=== PATIENT | female | born 1940 | race Caucasian/White ===

== ENCOUNTER → 2023-05-05 14:02 | Outpatient (REF) | payer OTHER, SELFPAY | LOC: HWRAD 14:02 | PROVIDERS: ATTENDING PHYSICIAN Internal Medicine; FAMILY PHYSICIAN Internal Medicine | DX: M81.0 Age-related osteoporosis without current pathological fracture (principal) | CPT/HCPCS: 77080 ==

== ENCOUNTER → 2023-05-17 11:25 | Outpatient (REF) | payer OTHER, SELFPAY ==
[2023-05-17 15:43] LABS: % Basophils 0.8 % (0-2); % Eosinophils 3.2 % (0-6); % Immature Granulocytes 0.3 % (0-0.5); % Lymphocytes 31.3 % (20.5-51.1); % Monocytes 7.9 % (1.7-9.3); % Neutrophils 56.5 % (42.2-75.2); Absolute Basophils 0.1 10^3/uL (0-0.2); Absolute Eosinophils 0.3 10^3/uL (0-0.7); Absolute Lymphocytes 2.8 10^3/uL (1.2-3.4); Absolute Monocytes 0.7 10^3/uL (0.1-0.6); Absolute Neutrophils 5.1 10^3/uL (1.4-6.5); Hematocrit 34.7 % (37.0-47.0); Mean Corp Hgb Conc. 34.6 g/dL (33.0-37.0); Mean Corpuscular Hgb 31.5 pg (27.0-31.0); Mean Corpuscular Volume 91.1 fL (81.0-99.0); Mean Platelet Volume 10.9 fL (7.4-10.4); Nucleated Red Blood Cells % 0 %; Platelet Count 310 10^3/uL (130-400); Red Blood Cell Count 3.81 10^6/uL (4.20-5.40); Red Cell Dist. Width 14.2 % (11.5-14.5)
[2023-05-17 15:54] LABS: ALT (SGPT) 25 U/L (0-35); AST (SGOT) 35 U/L (14-36); Albumin 4.9 g/dl (3.5-5.0); Alkaline Phosphatase 52 U/L (38-126); Blood Urea Nitrogen 63 mg/dl (7-17); Calcium 10.4 mg/dl (8.4-10.2); Carbon Dioxide 25 mmol/L (22-30); Chloride 101 mmol/L (98-107); Glucose 101 mg/dl (70-99); Potassium 3.9 mmol/L (3.5-5.1); Sodium 134 mmol/L (135-145); Total Bilirubin 0.6 mg/dl (0.2-1.3); Total Cholesterol 279 mg/dl (50-199); Total Protein 7.9 g/dl (6.3-8.2); Triglyceride 73 mg/dl (10-149); Very Low Density Lipoprotein 14 mg/dl (0-30); eGFR 34.79
[2023-05-17 16:04] LABS: HDL Cholesterol 138 mg/dl; LDL Cholesterol, Calculated 127 mg/dl
[2023-05-17 16:24] LABS: TSH Reflex To Free T4 1.56 uIU/ml (0.47-4.68)
[2023-05-17 16:26] LABS: Microalbumin, Random Urine 7.6 mg/dl (0.6-1.7)
== END ==
LOC: HWLAB 11:25
PROVIDERS: ATTENDING PHYSICIAN Internal Medicine; FAMILY PHYSICIAN Nurse Practitioner Family
DX: M81.0 Age-related osteoporosis without current pathological fracture (principal); R79.89 Other specified abnormal findings of blood chemistry; I10 Essential (primary) hypertension; E78.5 Hyperlipidemia, unspecified
CPT/HCPCS: 36415; 80053; 80061; 82043; 82306; 82570; 84443; 85025

== ENCOUNTER → 2023-05-20 15:27 | Outpatient (REF) | payer OTHER, SELFPAY ==
[2023-05-20 15:48] LABS: Ionized Calcium 1.24 mMOL/L (1.15-1.33)
[2023-05-20 16:08] LABS: Calcium 10.8 mg/dl (8.4-10.2)
[2023-05-21 11:24] LABS: Intact PTH 41.9 pg/ml (13.6-85.8)
== END ==
LOC: REG 15:27
PROVIDERS: ATTENDING PHYSICIAN Internal Medicine; FAMILY PHYSICIAN Internal Medicine
DX: M81.0 Age-related osteoporosis without current pathological fracture (principal); N18.32 Chronic kidney disease, stage 3b; E83.52 Hypercalcemia
CPT/HCPCS: 36415; 82330; 83970

== ENCOUNTER → 2023-08-03 12:09 | Outpatient (REF) | payer OTHER, SELFPAY ==
[2023-08-03 14:41] LABS: ALT (SGPT) 22 U/L (0-35); AST (SGOT) 32 U/L (14-36); Albumin 4.7 g/dl (3.5-5.0); Alkaline Phosphatase 48 U/L (38-126); Blood Urea Nitrogen 37 mg/dl (7-17); Calcium 10.9 mg/dl (8.4-10.2); Carbon Dioxide 27 mmol/L (22-30); Chloride 100 mmol/L (98-107); Glucose 75 mg/dl (70-99); Potassium 4.3 mmol/L (3.5-5.1); Sodium 138 mmol/L (135-145); Total Bilirubin 0.5 mg/dl (0.2-1.3); Total Protein 7.6 g/dl (6.3-8.2); eGFR 56.25
== END ==
LOC: REG 12:09
PROVIDERS: ATTENDING PHYSICIAN Internal Medicine; FAMILY PHYSICIAN Internal Medicine
DX: N18.9 Chronic kidney disease, unspecified (principal)
CPT/HCPCS: 36415; 80053

== ENCOUNTER 2023-09-26 15:41 | Inpatient (IN) | payer OTHER, SELFPAY ==
[2023-09-26] VITALS (10 sets, daily range): BP systolic 107–157; BP diastolic 59–79; BMI 16.3
[2023-09-26 09:38] LABS: Glucose - Point of Care 112 mg/dl (70-99)
[2023-09-26 10:02] LABS: ALT (SGPT) 22 U/L (0-35); AST (SGOT) 32 U/L (14-36); Albumin 4.6 g/dl (3.5-5.0); Alkaline Phosphatase 50 U/L (38-126); Blood Urea Nitrogen 29 mg/dl (7-17); Calcium 10.2 mg/dl (8.4-10.2); Carbon Dioxide 31 mmol/L (22-30); Chloride 95 mmol/L (98-107); Estimated Creatinine Clearance 31 ml/min; Glucose 104 mg/dl (70-99); Potassium 3.7 mmol/L (3.5-5.1); Sodium 133 mmol/L (135-145); Total Bilirubin 0.7 mg/dl (0.2-1.3); Total Protein 7.2 g/dl (6.3-8.2); eGFR 56.25
--- NOTE | 2023-09-26 10:45 | ED.GENMED ---
History of Present Illness
General
Chief Complaint: Change in Mental Status
Source: patient and spouse
Exam Limitations: altered mental status
Time Seen by Provider: 09/26/23 09:36
Nursing documentation reviewed up to this point in time: agreed with
History of Present Illness
History of Present Illness:
83-year-old female history of hypertension presents with mental status change woke up early went to the gym came back found her confused in the bed, she has loss of memory, she appeared confused, did not recognize things to remember dates,
she did recognize her , here she is unsure where she is, unsure of the date, no trauma, no nausea or vomiting states she has a mild headache, no dysuria or frequency, drinks alcohol socially not excess, no history of strokes or heart disease
does have some chronic back pain uses a walker or cane
Past History
Past History
ED Past Medical History: HTN and Other (Chronic pain in the back)
ED Past Surgical History: Orthopedic (wrist)
Social History
Tobacco: Smoker
Alcohol: Occasional
Drug: None
Personal:
Living: with family
Employment: Retired
Family History
Family History: Other (Noncontributory)
Review of Systems
Review of Systems
All Other Systems: Not applicable
Constitutional: Denies fever or fatigue
EENT: Reports no symptoms
Respiratory: Reports no symptoms
Cardiac: Reports no symptoms
ABD/GI: Reports no symptoms
: Reports no symptoms
Neurological: Reports other (Memory loss)
Phy Exam
Physical Exam
Physical Exam:
Physical Exam
General: no apparent distress, not acutely ill
Neck: No tongue bite
Heart: Regular
Lungs: no acute respiratory distress. clear bilaterally
Abdomen: Nontender
Neuro: Moves all extremities, recognizes her , no facial palsy unsure of the date unsure of the place
Skin: no rash
Psychiatric: Appropriately anxious although cooperative
Extremities: no edema.
Course
Orders/Labs/Results
Orders:
Orders
09/26/23 09:34
Electrocardiogram (*1) Urgent
Reason for Study: Other
Other Reason for Exam: Possible Sepsis
EKG- Treatment ONCE
IV Insert/Care/Rem.- Treatment PRN
Pulse Ox/cont/shift [RESP] Urgent
Quantity: 1
Special Instructions: CONTINUOUS
09/26/23 09:37
Complete Blood Count/With Diff Urgent
Comprehensive Metabolic Panel Urgent
09/26/23 10:26
CT Head W/o Iv Contrast Urgent
Comment:
Reason For Exam: amnesia
09/26/23 10:27
Urinalysis Reflex To Culture Urgent
09/26/23 11:00
NEUROLOGY CONSULT Routine
Consulting Provider: Carlos Alberto Rosario
Was physician already notified: Yes
09/26/23 12:14
Aspirin 325 mg PO NOW STA
Clopidogrel Bisulfate [Plavix] 300 mg PO NOW STA
Abnormal Lab Results
09/26/23
09:37
RBC 4.03 L 10^6/uL
(4.20-5.40)
Hct 36.0 L %
(37.0-47.0)
MCH 31.5 H pg
(27.0-31.0)
RDW 14.6 H %
(11.5-14.5)
Absolute Neuts (auto) 8.9 H 10^3/uL
(1.4-6.5)
Neutrophils % 81.6 H %
(42.2-75.2)
Lymphocytes % 12.6 L %
(20.5-51.1)
Sodium 133 L mmol/L
(135-145)
Chloride 95 L mmol/L
(98-107)
Carbon Dioxide 31 H mmol/L
(22-30)
BUN 29 H mg/dl
(7-17)
Glucose 104 H mg/dl
(70-99)
POC Glucose 112 H mg/dl
(70-99)
09/26/23 09:37
09/26/23 09:37
Vital Signs
Initial and Last Documented VS:
Initial Vital Signs
Temp Pulse Resp BP Pulse Ox
99.6 F 85 13 146/79 92
09/26/23 09:35 09/26/23 09:35 09/26/23 09:35 09/26/23 09:35 09/26/23 09:35
Last Documented Vital Signs
Temp Pulse Resp BP Pulse Ox
99.6 F 83 17 144/73 97
09/26/23 09:35 09/26/23 11:30 09/26/23 11:30 09/26/23 11:00 09/26/23 11:30
MDM/Problems Addressed
Differential Diagnosis Includes:
TGA, seizure mass electrolyte abnormality toxic metabolic
MDM/Problems Addressed:
Confusion
Chronic conditions affecting care: HTN
Acute Exacerbation and/or Progression of Chronic Illness: HTN
*Radiology
Radiology exam reviewed: radiology read reviewed
*Pulse Oximetry
Patient hypoxic: no
*EKG
Interpreted by ED Provider?: Yes
Interpretation: abnormal
Comparison EKG: no comparison EKG present
Heart Rate: 78
Rate: normal
Rhythm: sinus
Ischemia: non-specific ST changes
*Metals Sales Representative Interpretation
Rate: normal
Interpretation: normal
Heart Rate: 78
Rhythm: sinus
*Critical Care Note
Total Time (30-74mins, 75-104mins- exclusive of procedures): Not Applicable
Update Note
Update Note:
Update CT noted, patient and spouse updated have requested nonurgent neurology consultation
Reviewed with neurology concerned that this could actually be CVA, patient has some neglect, will start on aspirin and Plavix
ED Attending Note
-
Portions of this chart may have been created with voice recognition software.� Occasional wrong word or��sound alike� substitutions may have occurred due to the inherent limitations of voice recognition software.
Discharge Plan
Departure
Patient Disposition: Admit
Date of Disposition: 09/26/23
Time of Disposition: 12:16
Admit to: Telemetry
Presentation/result/management discussed w/ accepting MD/DO: Hospitalist
Patient with high blood pressure during this ER visit?: Yes
Condition: Fair
Discharge Problem:
Stroke
Prescriptions:
No Action
lisinopril 20 MG tablet
20 mg PO DAILY
metoprolol tartrate 25 MG tablet
25 mg PO DAILY
hydrochlorothiazide 12.5 MG tablet
12.5 mg PO DAILY
Referrals:
UNKNOWN,NO INTERVIEW [Family Provider] -
Interventions
Interventions:
*Risk Screen - Suicide Last Done: 09/26/23 09:32
*General Assessment Last Done: 09/26/23 09:32
*Neglect/Abuse Screening Last Done: 09/26/23 09:32
*ED COVID-19 Vaccine History Last Done: 09/26/23 09:32
ED- Neurological Assessment Last Done: 09/26/23 09:32
Discharge Date and Time
Print Language: ALGERIAN
--- NOTE | 2023-09-26 11:09 | CON.NEURO4 ---
Addendum entered and electronically signed by Carlos Alberto Rosario MD 09/26/23 13:18:
I saw and evaluated the patient I reviewed the note by Lucinda Arevalo agree with the findings the following comments:
83-year-old woman with past medical history of hypertension tobacco use and significant alcohol use presented to hospital with acute onset of confusion and memory difficulty, speech abnormality and disorientation. Patient was normal yesterday and
did not have any abnormalities of mental status or functioning. Noted by her this morning around 7 AM that she did not want to get out of bed and she was not speaking normally, was not able to answer basic questions like saying her name,.
No recent fevers or complaint of neck pain head trauma patient complained of a mild headache.
Patient has no previous history of stroke or heart attack she does take 3 medications for blood pressure and averages around 5 to 6 cigarettes a day, around 8 to 10 ounces of vodka daily for years with no history of alcohol withdrawal or seizure.
Neurologic examination
Mental status is significantly abnormal patient can identify her but cannot say his middle name she can identify her daughter but not give her name and the patient cannot say her own name when asked to, she can repeat simple phrases and
identify simple objects consistently, not oriented to situation and location and cannot name any states of the [place], obeys simple commands consistently but cannot obey more complex commands such as touching the left ear with the right hand.
Cranial nerve examination shows a visual neglect on the right visual hemifield otherwise normal cranial nerves
Motor examination no pronator drift strength is 5/5 for shoulder abduction arm flexion hip flexion bilateral
CT head noncontrast unremarkable
Assessment: High suspicion for a left sided parietal or MCA distribution ischemic stroke given sudden onset confusion and speech difficulty and disorientation along with right visual hemineglect. Less likely alcohol related like Wernicke's
encephalopathy but would remain in DDx with significant chronic alcohol use. Not consistent with TGA by history or examination.
Recommendations
-IV thiamine high-dose 500 mg every 8 hours for the next few days
-Monitor for alcohol withdrawal
-Loaded with aspirin and clopidogrel and continue DAPT therapy tentatively for 3-week
-Permissive hypertension goal less than 220/120 till tomorrow morning at 7 AM
-Neurologic checks and NIH stroke scale
-Cardiac telemetry and check transthoracic echocardiogram
-Check MRI brain MRA head and neck
-Speech PT OT
We will follow
Original Note:
Documented by User: Lucinda Toro NP 09/26/23 12:45
Consultation - Neurology 4
-
CONSULTING PHYSICIAN: Yoli Rosario MD
REFERRING PHYSICIAN: ER/Dr. Elliott
DICTATED BY: GERRY Flores
DATE/TIME OF REQUEST: 09/26/23
DATE/TIME OF CONSULTATION: 09/26/23
Reason for Consultation: Confusion
History of Present Illness:
This is an 83-year-old right-handed female who has presented to the hospital with report of abrupt onset confusion. Patient is currently a limited historian and most of this information is obtained from her spouse and daughter at bedside. Patient's
reports that they went to bed last night (09/25/23) around 2200 and the patient was in her usual state. He returned home from the gym this morning at 0700 and reports that she reported not feeling well, and saying she didn't want to get out
of bed. She was unable to provide answers to most of his questions and seemed like she had thoughts but was unable to finish her sentences. She was unable to state her own name. He was able to help her get dressed but couldn't convince her to walk
to the car to go to the hospital, so he called EMS. CT head was obtained on arrival and is negative for any acute abnormalities. She is not a candidate for TNK/IAT due to outside of time window and NIHSS <6. Patient endorses a mild right parietal
headache. She denies any dizziness, vision changes, speech/swallow difficulty, numbness, weakness, chest pain, palpitations, and shortness of breath. She had been a daily smoker since she was a teenager. Her family also notes that she drink 8-10oz
of vodka daily for years and has a tremor at baseline. She has no history of TIA, stroke, or events similar to this in the past and she was not taking any blood-thinning medications. At baseline she has ambulated with a cane or walker for several
years due to lumbar compression fractures. She manages most of the finances and still drives, no overt cognitive issues.
Past Medical History: HTN, HLD, CKD, osteoporosis, recurrent UTI, COPD, glaucoma, impaired fasting blood glucose, L1 and S3 compression fracture, right wrist fracture, pelvic fracture
Surgical History: Right wrist repair, vertebroplasty.
Family History: Mother- CVA in her 60's.
Social History: Current daily smoker 5-6 cigarettes daily. Chronic daily alcohol usage 8-10oz vodka daily. Denies illicit drug use/
Allergies: No known allergies.
Home Medications: See below.
Review of Symptoms:
Patient denies any fever, chest pain, shortness of breath, GI or symptoms.
�Per the HPI.�All systems are reviewed negative except above.
Physical Exam:
The patient is afebrile, abdomen is nondistended, breathing is unlabored, skin is warm and dry, no edema.
NIH Stroke Scale:
I performed the NIH stroke scale on the patient on 09/26/23 at 1200. The patient scored 4 points on the NIH stroke scale assessment, which were assigned as follows: See below.
Neurologic Examination:
The patient is awake, alert and oriented to first name only. She is able to follow some two-step commands, great difficulty following commands involving the right side of her body. She can answer only a few questions appropriately. There is mild
aphasia, no dysarthria. On cranial nerve assessment, pupils are 3 mm bilateral, round and reactive to light and accommodation. Visual ingram are appear reduced on the right side, mostly the RLQ. Extraocular movements are intact. Facial sensations
are intact and bilaterally symmetrical, there is no facial asymmetry. Hearing is intact bilaterally to normal conversation volume. Tongue palate and uvula are midline. Sternocleidomastoid strengths are full bilaterally. Motor strengths are 5/5
bilateral upper and lower extremities on medical research [place] scale. There is no drift or involuntary movement noted. Deep tendon reflexes are 1+ bilateral upper and lower extremities, absent b/l patellar, and Babinski is absent bilaterally.
Sensations of touch, temperature and vibration are intact and bilaterally symmetrical. There was no extinction noted on double simultaneous stimulation. Coordination is intact by finger to nose bilaterally.
Lab Results: See below.
Neuro Imaging:
1. CT Head 09/26/23: No acute intracranial abnormalities appreciated. Mild cerebral atrophy. Nonspecific white matter hypoattenuation, most often seen in the setting of small vessel ischemic change.
Differentials for the patient's presentation include:
1. Likely an acute left hemisphere parietal/occipital ischemic infarct producing confusion, right vision deficit.
2. Chronic daily alcohol usage.
Patient has the following risk factors for their symptoms: HTN, HLD, smoking, age
IV Tenecteplase/IAT candidacy: She is not a candidate due to outside of time window, NIHSS <6.
Recommendations:
-Provide a loading dose of aspirin 325mg and Plavix 300mg x1 now. Continue DAPT for 21 days with aspirin 81mg and Plavix 75mg daily. After 21 days, discontinue Plavix and continue aspirin 81mg daily only, indefinitely.
-Permissive hypertension SBP<220, DBP<120 until 09/27/23 at 0700, then goal normotension.
-MRI brain noncontrast, MRA head/neck pending.
-TTE pending.
-MSAS protocol. Thiamine/folate replacement.
-LDL goal <70. Lipid panel pending. Initiate atorvastatin 40mg daily.
-Goal normoglycemia, hbA1c is pending.
-Checking blood work for metabolic abnormalities.
-Smoking cessation counseling.
-PT/OT/ST evaluations.
-NIHSS and neurological checks per unit guidelines.
-Provide patient/family with a stroke education packet.
-DVT prophylaxis.
-Will follow.
Discussed patient care with: Dr. Rosario, the patient, patient's family
Vital Signs and Labs
-
Vital Signs and Labs:
Vital Signs
Temp Pulse Resp BP Pulse Ox
99.6 F 83 17 144/73 97
09/26/23 09:35 09/26/23 11:30 09/26/23 11:30 09/26/23 11:00 09/26/23 11:30
Lab Results
09/26/23 09:37
09/26/23 09:37
Sodium 133 mmol/L (135-145) L 09/26/23 09:37
Potassium 3.7 mmol/L (3.5-5.1) 09/26/23 09:37
BUN 29 mg/dl (7-17) H 09/26/23 09:37
Glucose 104 mg/dl (70-99) H 09/26/23 09:37
Calcium 10.2 mg/dl (8.4-10.2) 09/26/23 09:37
Medications
-
Home Medications
�Medication �Instructions �Recorded
hydrochlorothiazide 12.5 mg tablet 12.5 mg PO DAILY 12/29/20
lisinopril 20 mg tablet 20 mg PO DAILY 12/29/20
metoprolol tartrate 25 mg tablet 25 mg PO DAILY 12/29/20
NIH Stroke Score
Subsequent NIH Scale
Date of Subsequent NIH Scale: 09/26/23
Time of Subsequent NIH Scale: 12:00
NIH Stroke Score
Level of Consciousness: 0 - Alert
LOC Questions: 2-Neither correct
LOC Commands: 0-Performs both correctly
Best Horizontal Gaze: 0-Normal
Visual Ingram: 1=Partial hemianopia
Facial Palsy: 0=Normal, symmetrical
Motor - Right Arm: 0=No drift 10 seconds
Motor - Left Arm: 0=No drift 10 seconds
Motor - Right Le-No drift 5 seconds
Motor - Left Le-No drift 5 seconds
Limb Ataxia: 0-Absent
Sensation: 0-Normal
Best Language: 1-Mild aphasia
Dysarthria: 0-Normal
Extinction and Inattention: 0-No abnormality
Total Score:: 4
Modified Redwood (mRS) Score
Modified Redwood Scale (mRS): Moderate disability. Requires some help, able to walk unassisted.
Score: 3
Alteplase Contraindication
Inclusion and Exclusion criteria reviewed: Yes
Reasons for NON-Tx with Thrombolytics ABSOLUTE Exclusions: Greater than 4.5 hrs from onset of sxs
IAT Contraindications: NIHSS < 6

Documented by User: Carlos Alberto Rosario MD 09/26/23 13:13
NIH Stroke Score
NIH Stroke Score
Total Score:: 4
Modified Brooke (mRS) Score
Score: 3
[2023-09-26 11:27] LABS: % Basophils 0.5 % (0-2); % Eosinophils 0.1 % (0-6); % Immature Granulocytes 0.4 % (0-0.5); % Lymphocytes 12.6 % (20.5-51.1); % Monocytes 4.8 % (1.7-9.3); % Neutrophils 81.6 % (42.2-75.2); Absolute Basophils 0.1 10^3/uL (0-0.2); Absolute Lymphocytes 1.4 10^3/uL (1.2-3.4); Absolute Monocytes 0.5 10^3/uL (0.1-0.6); Absolute Neutrophils 8.9 10^3/uL (1.4-6.5); Hemoglobin 12.7 g/dL (12.0-16.0); Mean Corp Hgb Conc. 35.3 g/dL (33.0-37.0); Mean Corpuscular Hgb 31.5 pg (27.0-31.0); Mean Corpuscular Volume 89.3 fL (81.0-99.0); Mean Platelet Volume 10.1 fL (7.4-10.4); Nucleated Red Blood Cells % 0 %; Platelet Count 307 10^3/uL (130-400); Red Blood Cell Count 4.03 10^6/uL (4.20-5.40); Red Cell Dist. Width 14.6 % (11.5-14.5); White Blood Cell Count 10.8 10^3/uL (4.8-10.8)
[2023-09-26] MEDS: PLAVIX 300 MG PO (12:30)
[2023-09-26] MEDS: ASPIRIN 325 MG PO (12:30)
[2023-09-26 13:09] LABS: Total Cholesterol 250 mg/dl (50-199); Triglyceride 47 mg/dl (10-149); Very Low Density Lipoprotein 9 mg/dl (0-30)
[2023-09-26 13:22] LABS: HDL Cholesterol 137 mg/dl; LDL Cholesterol, Calculated 104 mg/dl
[2023-09-26 13:51] LABS: Glycohemoglobin (HgbA1c) 4.9 % (4.0-5.6)
--- NOTE | 2023-09-26 14:05 | PHANOTE ---
med rec edith(09/26/23)-patient has aphasia, as per speech therapy. Compiled list with [facility], e[facility], and the medications the family knew she had at home. Lisinopril may have been stopped as instructed by doctor in eCW, but was still grouped with
the rest of the medication at home, according to family.
--- NOTE | 2023-09-26 14:27 | PTOTSP ---
DUPLIGRAPH OPERATOR Evaluations
Oral/pharyngeal swallowing suspected to be within functional limits to initiate a regular, thin liquid diet with medications as best tolerated. Supervision warranted given abrupt onset of confusion prompting this admission.
Quick Aphasia Battery Form 1 Score = 4.44. Patient with a mixed aphasia with expressive greater than receptive deficits, relatively intact repetition and oral reading. Communication significantly impaired. No dysarthria observed. Continue
therapy at the acute care level and after D/C at this time.
--- NOTE | 2023-09-26 15:02 | HPS.HSE ---
Addendum entered and electronically signed by Matilde Ortega MD 09/26/23 17:48:
83-year-old female admitted because of mental status change. No fever
I personally performed a history and physical exam of the patient and discussed management with the resident. I reviewed the resident's note and agree with the documented findings and plan of care HPI/CC.
On examination awake alert knows that she is at [facility] and this month is September and today is Tuesday. She does not know what year
Still seems to be slightly confused
Cardiovascular system S1-S2 appreciated
Chest clear to auscultation
Abdomen soft and nontender
Neuro exam-cranial nerves normal
No sensorimotor deficits, no pronator drift
Slight confusion still noted
Mild hyperreflexia uniform throughout
Differentials include neurological event, TME secondary to infection, postconcussion syndrome, less likely seizures
Neurochecks and NIH scale
MRI/MRA- and ECHO
Continue antiplatelets
Permissive hypertension
Hold HCTZ especially with Hyponatremia
Check lipid panel
Smoking and alcohol cessation counseling
DVT Prophylaxis- Lovenox
Treat UTI with ceftriaxone-while waiting for cultures
Original Note:
Family Physician
-
Family Physician: NO INTERVIEW UNKNOWN
Chief Complaint
-
Change in mental status
History of Present Illness
83-year-old woman with past medical history of hypertension, tobacco abuse, alcohol abuse presents to the hospital with acute onset of confusion, speech abnormalities, memory difficulty, disorientation. Last known time normal was 09/25/2019 4 at
night. It was noted this morning that the patient was not able to answer basic questions like her name, was not speaking normally and did not want to get out of bed. On admission patient's mental status has not changed from this morning, she is
still confused has word finding difficulties as well as difficulty with identification and general forgetfulness. These episodes seem to wax and wane regarding what she can and cannot remember. Patient says that she did fall and hit her head 2
days prior. She has no previous history of stroke heart attack, she does admit to drinking 8 to 10 ounces of vodka daily for years as well as smoking 5 to [address] head was negative for acute intracranial pathologies, MRI was ordered.
Medical History
Past Medical History
Past Medical History: Reports HTN; Denies CAD or CVA
Additional Past Medical History:
Patient is a very poor historian, past medical history generally unknown
Past Surgical History: Reports Other (Vertebral compression fracture fixes)
Social History
Tobacco: Smoker
Alcohol: Daily (8 to 10 ounces of vodka per day)
Drug: None
Personal:
Living: With Family
Employment: Retired
Family History
Family History: Not pertinent
Allergies / Home Medications
Allergies reflects when Allergies were last updated in [facility].
Home Medications with original date entered in [facility]
Allergy/Medication List:
Allergies and medications at this time are unknown
Currently only 2 known medications are
Hydrochlorothiazide 25 Mg p.o.
Metoprolol succinate 25 mg p.o.
If medication reconciliation has not been performed, why?: Medication List N/A
Review of Systems
-
History Source: Patient and Family
Constitutional: Reports No Symptoms
Respiratory: Reports No Symptoms
Cardiac: Reports No Symptoms
Abdomen/GI: Reports No Symptoms
: Reports No Symptoms
Skin: Reports No Symptoms
Neurological: Reports See HPI
Psych: Reports No Symptoms
Physical Exam
Vital Signs
Vital Signs
Temp Pulse Resp BP Pulse Ox
99.6 F 81 15 129/73 96
09/26/23 09:35 09/26/23 14:45 09/26/23 14:45 09/26/23 14:00 09/26/23 14:00
Physical Exam
General: Well Developed, Well Nourished, No Apparent Distress, Comfortable and Conversant
Respiratory: Clear and Non Labored Respirations
Cardiac: S1/S2 and Regular Rhythm
GI: Soft, Non Tender, Non Distended and Normal Bowel Sounds
Skin: Warm and Dry
Neuro: Awake, Alert and Other (Patient's mental status waxes and wanes, was oriented to person and time but not place); No Oriented or AO x 3
Psych: Calm; No Intact Judgment/Insight
Laboratory Results
-
09/26/23 09:37
09/26/23 09:37
Laboratory Results
Total Bilirubin 0.7 mg/dl (0.2-1.3) 09/26/23 09:37
AST 32 U/L (14-36) 09/26/23 09:37
ALT 22 U/L (0-35) 09/26/23 09:37
Alkaline Phosphatase 50 U/L (38-126) 09/26/23 09:37
Data Reviewed
-
CT Scan: Report Reviewed by me and Discussed with Physician
Lab Data: Labs Reviewed by me and Discussed with Physician
Impression/Plan
-
IMPRESSION: 83-year-old female presents with an acute onset of change in mental status
PLAN:
#Change in mental status
-TME versus stroke
-Last known normal was the night of 09/25/2023
-Patient appears altered from baseline, family endorses this as well. Endorses issues with word finding, identification and general forgetfulness
-CT scan head in ED did not show any acute intracranial pathology
-MRI brain, head, neck pending
-Will allow permissive hypertension 220/120 until tomorrow at 7 AM
-UA and reflex culture was ordered
-Echocardiogram ordered
-Patient was loaded with DAPT, aspirin and Plavix, will continue tentatively for the next 3 weeks
-IV thiamine 500 every 8
-B12, folate, TSH are pending
-Speech and PT OT have been consulted
-Neurochecks plus NIH stroke scale
#Alcohol abuse
-Patient endorses drinking 8 to 10 ounces of vodka every day
-Patient placed on MSAS protocol
-Will continue to monitor for signs of alcohol withdrawal
-IV thiamine 500 every 8 hours ordered
-Check magnesium
#Hyponatremia
-Patient appears euvolemic on exam
-Sodium 133 on admission
-Status post 1 L IV fluids
DVT prophylaxis: SCD
Full code
[2023-09-26 15:34] LABS: Urine Albumin Trace (Neg - Trace); Urine Bilirubin Negative (Negative); Urine Character Slightly Cloudy (Clear); Urine Color Yellow; Urine Glucose Negative (Negative); Urine Ketone Negative (Negative); Urine Leukocyte 1+ (Negative); Urine Nitrite Negative (Negative); Urine Occult Blood Trace (Negative); Urine Urobilinogen Negative (Neg - 1+)
[2023-09-26 15:44] LABS: Urine Bacteria Many (Negative); Urine White Cell 26-30 /HPF (0-5)
[2023-09-26 15:44] LABS: TSH Reflex To Free T4 0.97 uIU/ml (0.47-4.68)
[2023-09-26 16:19] LABS: Folate 19.1 ng/ml (2.76-20); Vitamin B12 333 pg/ml (239-931)
[2023-09-26] MEDS: LIPITOR 80 MG PO (17:50)
[2023-09-26] MEDS: THIAMINE INJECTION 255 MG IV ×2 (17:51→23:29)
[2023-09-26] MEDS: FOLVITE 1 MG PO (17:51)
[2023-09-26] MEDS: NSS 1000 IV (17:51)
[2023-09-26] MEDS: STERILE WATER FOR INJECTION 10 ML IV (17:53)
[2023-09-26] MEDS: ROCEPHIN 1000 MG IV (17:53)
[2023-09-26] MEDS: LOVENOX 40 MG SC (17:55)
[2023-09-26 17:58] LABS: Amphetamines Negative (Negative); Barbiturates Negative (Negative); Benzodiazepines Negative (Negative); Buprenorphine Negative (Negative); Cocaine Negative (Negative); Marijuana Negative (Negative); Methadone Negative (Negative); Methamphetamines Negative (Negative); Opiates Negative (Negative); Phencyclidine Negative (Negative); Tricyclic Antidepressants Negative (Negative)
[2023-09-26 18:05] LABS: GGTP 25 U/L (12-43); Phosphorus 2.9 mg/dl (2.5-4.5)
--- NOTE | 2023-09-26 18:06 | PTCARENOTE ---
Addendum entered by Jessica Larsen RN 09/26/23 18:09:
Patient is on msas
Original Note:
Rn Flow nascar racer- Patient states tht she drinks one drink daily. As per family patient have 6-7 ounces daily of vodlka.
[2023-09-26 18:09] LABS: INR 0.98; PT 12.8 Sec (11.4-14.6)
[2023-09-26 18:09] LABS: Alcohol None Detected
[2023-09-26 18:11] LABS: B-Hydroxybutyrate 0.41 mmol/L (0.02-0.27)
--- NOTE | 2023-09-26 18:54 | PTCARENOTE ---
Patient received in stretcher from ED. Slightly disoriented, but mentation improved after patient was settled in bed. VSS, medications/IVF/etc initiated, NIHSS 0, MSAS 2 for tremors and vague confusion. Patient able to ambulate with assistance from
the stretcher to the bed and subsequently to the bathroom. Bed alarm placed, patient reminded to use call seaman for assistance and she demonstrated understanding. No further needs assessed at this time.
[2023-09-27] VITALS (8 sets, daily range): BP systolic 111–160; BP diastolic 64–93; PULSE 75–78; O2SAT 97–98
[2023-09-27 07:33] LABS: % Basophils 0.6 % (0-2); % Eosinophils 2.5 % (0-6); % Immature Granulocytes 0.5 % (0-0.5); % Lymphocytes 28.6 % (20.5-51.1); % Monocytes 8.6 % (1.7-9.3); % Neutrophils 59.2 % (42.2-75.2); Absolute Eosinophils 0.2 10^3/uL (0-0.7); Absolute Lymphocytes 1.9 10^3/uL (1.2-3.4); Absolute Monocytes 0.6 10^3/uL (0.1-0.6); Absolute Neutrophils 3.9 10^3/uL (1.4-6.5); Hematocrit 37.3 % (37.0-47.0); Mean Corp Hgb Conc. 34.9 g/dL (33.0-37.0); Mean Corpuscular Hgb 31.6 pg (27.0-31.0); Mean Corpuscular Volume 90.5 fL (81.0-99.0); Mean Platelet Volume 9.7 fL (7.4-10.4); Nucleated Red Blood Cells % 0 %; Platelet Count 294 10^3/uL (130-400); Red Blood Cell Count 4.12 10^6/uL (4.20-5.40); Red Cell Dist. Width 14.6 % (11.5-14.5); White Blood Cell Count 6.5 10^3/uL (4.8-10.8)
[2023-09-27 07:54] LABS: Blood Urea Nitrogen 20 mg/dl (7-17); Calcium 9.4 mg/dl (8.4-10.2); Carbon Dioxide 26 mmol/L (22-30); Chloride 104 mmol/L (98-107); Estimated Creatinine Clearance 35 ml/min; Glucose 89 mg/dl (70-99); Magnesium 1.7 mg/dl (1.6-2.3); Potassium 3.2 mmol/L (3.5-5.1); Sodium 138 mmol/L (135-145); eGFR > 60.00
[2023-09-27] MEDS: LOW STRENGTH ASPIRIN 81 MG PO (08:22)
[2023-09-27] MEDS: FOLVITE 1 MG PO (08:22)
[2023-09-27] MEDS: THIAMINE INJECTION 255 MG IV ×3 (08:22→23:15)
[2023-09-27] MEDS: VITAMIN B-12 100 MCG PO (08:22)
--- NOTE | 2023-09-27 09:13 | W.PN.HOSP.TC ---
Addendum entered and electronically signed by Matilde Ortega MD 09/27/23 15:00:
Hypokalemia-replace
Addendum entered and electronically signed by Matilde Orteag MD 09/27/23 14:58:
I personally performed a history and physical exam of the patient and discussed management with the resident. I reviewed the resident's note and agree with the documented findings and plan of care HPI/CC.
CVS: S1-S2 normal
Chest: CTA B/L
Abdomen: Soft, NT / Bowel sounds present
Extremities: No edema, normal pulses
STRIP CLEANER: Non focal exam
AAO3
Mental status change-completely resolved.
Patient is feeling well
Continue to treat UTI and wait for cultures
MRI of the brain without stroke
Restart antihypertensives- BB
Hold HCTZ
If stable will discharge tomorrow
Original Note:
Today's Communication/Plan
-
Patient has greatly improved, will continue to monitor. Discharge tomorrow likely
Assessment / Plan
Assessment / Plan
IMPRESSION: 83-year-old female presents with an acute onset of change in mental status
PLAN:
#Change in mental status
-Likely TME secondary to a UTI
-Resolved
-Patient completely at normal baseline mentation, no longer forgetful or having word finding difficulties. Patient was AAO x 4, she remembered me from yesterday, she remembers her family, currently not altered.
-Will continue to monitor today
-Last known normal was the night of 09/25/2023
-Patient appeared altered from baseline the morning of 09/26/2023, family endorsed this as well. Endorsed issues with word finding, identification and general forgetfulness
-CT scan head in ED did not show any acute intracranial pathology
-MRI brain, head, neck showed no acute stroke or significant vascular stenosis
-Discontinue permissive hypertension
-Echocardiogram today
-Patient was loaded with DAPT, aspirin and Plavix
-IV thiamine 500 every 8
-B12, folate, TSH were within normal limits
-Speech and PT OT have been consulted
-discontinue neurochecks and NIH scale
#UTI
-UA and reflex culture was positive for leukocyte esterase, white blood cells, many bacteria
-Ceftriaxone 1000 IV daily was initiated
-Urine culture and sensitivity currently pending
-Will adjust antibiotics with results, consider transitioning to p.o.
#Alcohol abuse
-Patient endorses drinking 8 to 10 ounces of vodka every day
-Patient placed on MSAS protocol
-MSAS score was 2 this morning, tremors only
-No Ativan needed
-Will continue to monitor for signs of alcohol withdrawal
-IV thiamine 500 every 8 hours ordered
-Magnesium 1.7, ordered 500 mg magnesium oxide p.o.
-B12 came back under 400, 100 mcg p.o. daily was initiated
#Hyponatremia
-Resolved
-Sodium 138 today
-Patient appears euvolemic on exam
-Sodium 133 on admission
-Status post 1 L IV fluids
#Hypokalemia
-Potassium 3.2 this morning
-Will replete with 40 mEq p.o. once
-Recheck BMP in a.m.
Cholesterol-lowering diet
DVT prophylaxis: Lovenox 40 subcu
Full code
Anticipated Discharge: Within 24 hours
Subjective/Interval History
-
Date of Service: September 27, 2023
Patient's mental status has greatly improved
Patient is mentating at her baseline currently, family was there to confirm
No longer confused AAOx3 completely aware of what is going on and no longer forgetful
Patient states that she would like to stay in extra day just to make sure
Objective Data
-
Labs:
Laboratory Results
09/27/23
07:11
WBC 6.5
Hgb 13.0
Hct 37.3
Plt Count 294
Sodium 138
Potassium 3.2 L
Chloride 104
Carbon Dioxide 26
BUN 20 H
Creatinine 0.9
Glucose 89
Calcium 9.4
Vital Signs:
Vital Signs
Temp Pulse Resp BP Pulse Ox
98.1 F 80 18 122/83 96
09/27/23 07:56 09/27/23 07:56 09/27/23 07:56 09/27/23 07:56 09/27/23 07:56
I&O
09/26/23 09/27/23 09/28/23
06:59 06:59 06:59
Intake Total 720 / 720
Balance 720 / 720
Review of Systems
-
History Source: Patient
Constitutional: Reports No Symptoms
Respiratory: Reports No Symptoms
Cardiac: Reports No Symptoms
Abdomen/GI: Reports No Symptoms
Genitourinary: Reports Frequency (Patient admits to having to use the bathroom at night); Denies Dysuria, Difficulty Voiding, Urgency or Hesitancy
Skin: Reports No Symptoms
Neuro: Reports No Symptoms
Physical Exam
-
General: Well Developed, Well Nourished, No Apparent Distress and Comfortable
Respiratory: Clear to Auscultation
Cardiac: Regular Rhythm and S1/S2
Musculoskeletal: No Edema
Skin: Warm and Dry
Neuro: Awake, Alert, Oriented, AO x 3 and Tremors
Psych: Calm and Intact Judgement/Insight
Data Reviewed
-
CT Scan: Report Reviewed by me and Discussed with Physician
MRI: Image personally visualized and interpreted, Report Reviewed by me and Discussed with Physician
Labs: Labs Reviewed by me and Discussed with Physician
--- NOTE | 2023-09-27 09:33 | W.PN.NEURO.1 ---
Addendum entered and electronically signed by Juaquin Marsh MD 09/27/23 13:22:
Studies reviewed.
I have personally examined the patient. I reviewed and agree with the [employer]AGE [employer] B[employer] SOR[employer] CLERK's Note.
My addenda:
Awake, alert, interactive. No acute distress.
Speech intact.
Follows 2-step requests w/o difficulty. No tremor.
Extra-ocular movements grossly intact.
Facial movements full and symmetric. Hearing intact to normal conversational volume.
Normal UE movements bilaterally.
Neck: full ROM.
Chest: no dyspnea
Heart: no JVD
Ext: (-) Clubbing, (-) Cyanosis, (-) Edema
IMPRESSIONS/RECOMMENDATIONS:
Abrupt onset of encephalopathy
No evidence of structural abnormality producing symptomatology. Differential diagnosis includes TIA although alcohol withdrawal is a possible etiology as well
May discontinue dual antiplatelet therapy including discontinuing aspirin and clopidogrel at this time
Continue alcohol withdrawal protocol
Continue provide B12 replacement
Smoking cessation counseling
Will continue to follow peripherally.
Original Note:
Today's Communication / Plan
-
.
Neuro Assessment/Plan
Assessment
This is an 83-year-old right-handed female with a PMH of HTN, chronic daily alcohol use, and current daily smoker who presented to on 09/26/23 with report of acute onset confusion, memory difficulty, speech abnormality and disorientation.
-MRI Brain 09/26/23: No evidence of acute intracranial abnormality. Moderate diffuse atrophy. Moderate T2 and FLAIR white matter hyperintensities, commonly seen with aging and usually attributed to small vessel ischemic disease.
-MRA head/neck 09/26/23: There is an aberrant right subclavian artery. The right vertebral artery originates from the proximal right common carotid artery, which has been described in association with an aberrant right subclavian artery. Evaluation
is limited by motion artifact, especially the right carotid bulb and proximal right internal carotid artery. Given that limitation, no evidence for hemodynamically significant stenosis of the right carotid bulb or the proximal right internal carotid
artery. The left carotid bulb and proximal left ICA are better visualized, with no evidence to suggest a hemodynamically significant stenosis. Mild tapered narrowing of the superior vertebral arteries, but without evidence of a focal stenosis.
Normal appearance of the basilar artery.Bilateral superior vertebral arteries are of relatively small caliber, although without evidence of a more focal narrowing. Normal appearance of the anterior circulation. No MR angiographic evidence for
intracranial aneurysm.
I. MRI brain is negative for stroke. Duration of symptoms not supportive of TIA.
II. Urinalysis is suggestive of UTI; likely TME producing transient cognitive changes, symptoms now resolved.
Plan
-Okay to discontinue DAPT as this event was not a stroke or TIA.
-Goal normotension.
-Infection workup/treatment per primary team.
-MSAS protocol. Thiamine/folate replacement.
-Neurological checks per unit guidelines. Okay to discontinue NIHSS. Patient provided with a stroke education packet.
-Okay to discontinue newly initiated high-dose statin, LDL is 104, goal <100.
-Vitamin B12 level is low at 333. Initiate cyanocobalamin 1000mcg PO daily.
-Outpatient workup for resting tremor.
-Smoking cessation counseling.
-Patient should follow-up as an outpatient with Neurology, may see one of the physicians or the [employer] SORTER CLERK.
Subjective/Objective
Subjective Data
Date of Service: September 27, 2023
No acute events overnight. Patient reports feeling 100% improved today, her family reports that her symptoms improved around 1700 last evening. She denies any headache, dizziness, speech/swallow difficulty, numbness, weakness, chest pain,
palpitations, and shortness of breath. She reports a chronic tremor in bilateral hands that interferes with handwriting.
Objective Data
Vital Signs
Temp Pulse Resp BP Pulse Ox
98.1 F 80 18 122/83 96
09/27/23 07:56 09/27/23 07:56 09/27/23 07:56 09/27/23 07:56 09/27/23 07:56
Lab Results
09/27/23 07:11
09/27/23 07:11
PT 12.8 Sec (11.4-14.6) 09/26/23 17:53
INR 0.98 09/26/23 17:53
Sodium 138 mmol/L (135-145) 09/27/23 07:11
Potassium 3.2 mmol/L (3.5-5.1) L 09/27/23 07:11
BUN 20 mg/dl (7-17) H 09/27/23 07:11
Glucose 89 mg/dl (70-99) 09/27/23 07:11
Calcium 9.4 mg/dl (8.4-10.2) 09/27/23 07:11
Phosphorus Cancelled 09/26/23 15:43
LDL Cholesterol, Calc 104 mg/dl 09/26/23 09:37
Vitamin B12 333 pg/ml (239-931) 09/26/23 09:37
Ur Buprenorphine Negative (Negative) 09/26/23 15:26
Patient Allergies
No Known Allergies Allergy (Verified 12/29/20 03:58)
Review of Systems
-
History Source: Patient
EENT: Negative Blurry Vision, Decreased Vision or Swallowing Difficulty
Respiratory: Negative Cough or Trouble Breathing
Cardiac: Negative Chest Pain or Palpitations
Abdomen/GI: Negative Nausea
Neuro: Tremors; Negative Dizzy, Headache, Weakness, Numbness, Ataxia or Speech Problem
Physical Exam
-
General: No Apparent Distress
Eyes: No Ptosis and PERRLA
HEENT: Normocephalic and Atraumatic
Neck: Full Range of Motion
Respiratory: No Dyspnea
GI: Non-distended
Extremities: No Clubbing, No Cyanosis and No Edema
Psych: Unremarkable
Extended Neurological Exam
Mood & Affect: Mood Unremarkable and Affect Unremarkable
Attention Span & Concentration: Awake, Alert, Interactive and No Difficulty with 2 Step Request
Memory: Unremarkable (AAOx3) and Able to Recall
Tremor: Head Tremor Absent, Rhythmic Distal 3/sec, Continuous, At Rest and With Action; Negative Hand Tremor Absent (RUE distal tremor)
Speech: Quality Unremarkable, Quantity Unremarkable and Rate of Production Unremarkable
Cranial Nerve II: Left Eye: Pupillary Reactivity Unremarkable, Pupillary Size Unremarkable and Visual Ingram Intact
Cranial Nerve II: Right Eye: Pupillary Reactivity Unremarkable, Pupillary Size Unremarkable and Visual Ingram Intact
Cranial Nerves III, IV, : Extraocular Movement: Extraocular Movement Full in all Directions
Cranial Nerve V: Facial Sensation: Intact to Light Touch
Cranial Nerve VII: Facial Symmetry: Normal Facial Symmetry
Cranial Nerve VIII: Hearing: Unremarkable Hearing to Normal Conversational Volume
Cranial Nerves IX, X: Palate Movement: Palate Elevation Symmetric
Cranial Nerve XI: Shoulder Shrug: Unremarkable
Cranial Nerve XII: Tongue Protusion: Midline
Muscle Strength, Overall: Full Throughout
Muscle Bulk & Tone: Bulk Unremarkable and Tone Unremarkable
Pronator Drift: No Drift in Upper Extremities and No Drift in Lower Extremities
Touch Sensation: Double Simultaneous Stimulation Unremarkable
Coordination: Symprx-lrib-fklhmx Testing Unremarkable
Babinski Sign: Absent Bilaterally
Data Reviewed
-
CT Head: Report Reviewed and Image Reviewed
MRI Head: Report Reviewed and Image Reviewed
MRA Head: Report Reviewed and Image Reviewed
MRA Neck: Report Reviewed and Image Reviewed
Lipid Profile: Report Reviewed
HgbA1C: Report Reviewed
Reviewed with: Physician, Patient and Family
--- NOTE | 2023-09-27 13:16 | CM ---
Patient seen bedside, initial assessment completed. Patient resides with her in a multiple story home, two steps to enter. Patient denies VN in past, reports she has been to outpatient therapy after she fractured her back. Patient reports
she goes to the gym twice a week, declines VN services at this time. Patient report she occasionally uses a cane if she is going long distances, has a walker at home if needed. Patient unsure of PCP name and practice as she just switched practices,
reports PCP is located in [place]. Patient pharmacy [facility] in [place]. Patient confirms prescription coverage through insurance, denies food, housing/utility, transportation insecurities. Patient reports she will be going home tomorrow. IMM
reviewed, signed, placed in chart. CM will continue to follow for all discharge planning needs.
Plan; home no needs, declining VN at this time.
[2023-09-27] MEDS: MAGNESIUM OXIDE 500 MG PO (14:45)
[2023-09-27] MEDS: KCL 40 MEQ PO (14:45)
--- NOTE | 2023-09-27 14:53 | W.DCSUMMARY ---
Discharge Summary
Discharge Data
Date of Admission: 09/26/23
Date of Discharge: 09/28/23
-
Pending Results: No
Hospital Course
Discharging Physician : Jordan Jara
Disposition : Home
Primary care physician : Chayo centeno
Principal Discharge diagnosis : Acute toxic metabolic encephalopathy
Chronic Discharge diagnosis : Hypertension, UTIs, tobacco abuse, alcohol abuse, TIA
Hospital Course : 83-year-old female with a past medical history of hypertension, tobacco abuse, alcohol abuse daily drinker 8 to 10 ounces per day. Presented to the hospital with an acute abrupt onset of confusion. It was noted that patient was
normal the night before however the morning of her hospitalization she was unable to answer basic questions like her name, was not speaking normally and did not want to get out of bed. Patient was having difficulty with defecation, word finding and
general forgetfulness. Episodes seem to wax and wane regarding when she can and cannot remember. Patient endorsed that she did fall and hit her head 2 days prior, CT head in ED was negative for any acute intracranial pathologies. Neurology was
consulted in the emergency department and prophylactically started the patient on stroke management protocol. Patient was loaded with DAPT, MRI brain head and neck was ordered, UA with reflex culture was ordered, echocardiogram was ordered.
Patient was admitted on telemetry, and MSAS protocol was initiated for alcohol withdrawal. UA returned with 26-30 white blood cells +1 leukocyte esterase and many bacteria. Patient was started on empiric ceftriaxone IV 1000 mg. Urine culture
later returned growing gram-negative bacilli, E. coli which was pansensitive. Patient was hyponatremic, sodium 133 on admission, which resolved after 1 L of IV fluids. The next morning the patient had greatly improved to the point where she was no
longer altered, no longer forgetful, had no issues word finding and was AAO x 4. Her family confirmed that she was indeed at her normal baseline. Magnesium, B12 and potassium were checked and repleted. Patient had an echocardiogram, see procedure
section for results. Patient will be discharged home on Ceftin twice daily 500 mg for 2 days. Totaling 5 days of antibiotics ceftriaxone IV 1000 mg daily for 3 days and Ceftin twice daily 500 mg days.
Important imaging findings :
09/26/[address], impressions:
1. No acute intracranial abnormalities appreciated.
2. Mild cerebral atrophy.
3. Nonspecific white matter hypoattenuation, most often seen in the setting of small vessel ischemic change.
09/26/2023 brain MRI, impressions:
No evidence of acute intracranial abnormality.
Moderate diffuse atrophy.
Moderate T2 and FLAIR white matter hyperintensities, commonly seen with aging and usually attributed to small vessel ischemic disease.
09/26/2023 head MRA, findings:
Bilateral superior vertebral arteries are of relatively small caliber, although without evidence of a more focal narrowing.
Normal appearance of the anterior circulation.
No MR angiographic evidence for intracranial aneurysm.
09/26/2023 MRA neck, findings:
There is an aberrant right subclavian artery.
The right vertebral artery originates from the proximal right common carotid artery, which has been described in association with an aberrant right subclavian artery.
Evaluation is limited by motion artifact, especially the right carotid bulb and proximal right internal carotid artery. Given that limitation, no evidence for hemodynamically significant stenosis of the right carotid bulb or the proximal right
internal carotid artery.
The left carotid bulb and proximal left ICA are better visualized, with no evidence to suggest a hemodynamically significant stenosis.
Mild tapered narrowing of the superior vertebral arteries, but without evidence of a focal stenosis. Normal appearance of the basilar artery.
Percent stenosis is calculated using NASCET criteria.
Procedure findings :
09/27/2023 echocardiogram, findings:
Left Ventricle
Normal left ventricular chamber size. Mild concentric left ventricular
hypertrophy. Normal left ventricular systolic function. Normal regional wall
motion. LV ejection fraction is 60-65% Normal diastolic function. Calcified
false tendon.
Right Ventricle
Normal right ventricular size and function.
Left Atrium
Indexed LA volume is within normal range (15-34 mL/m2).
Right Atrium
Normal right atrium.
Mitral Valve
Thickened mitral valve leaflets. Mitral annular calcification. Trace mitral
regurgitation.
Aortic Valve
Trileaflet aortic valve. Aortic sclerosis without stenosis. Mild aortic
regurgitation.
Tricuspid Valve
Tricuspid valve opens normally. Thickened leaflets. Mild tricuspid
regurgitation. Estimated pulmonary artery pressure of 25-30 mmHg. Assuming a
right atrial pressure of 8 mmHg.
Pulmonic Valve
Trace pulmonic regurgitation.
Pericardium\\Pleura
Normal pericardium without effusion.
Aorta
The aortic root is of normal size.
Other Finding
The IVC is mildly dilated. Interatrial septum is intact with no evidence of
shunting by color flow Doppler. No intracardiac mass or thrombus formation
seen.
MEASUREMENTS (Male / Female) Normal Values
2D ECHO
LV Diastolic Diameter PLAX 4.2 cm 4.2 - 5.9 / 3.9 - 5.3 cm
LV Systolic Diameter PLAX 3.0 cm
IVS Diastolic Thickness 1.1 cm 0.6 - 1.0 / 0.6 - 0.9 cm
LVPW Diastolic Thickness 1.1 cm 0.6 - 1.0 / 0.6 - 0.9 cm
LV Relative Wall Thickness 0.5
LVOT Diameter 1.8 cm
LA Systolic Diameter LX 3.9 cm 3.0 - 4.0 / 2.7 - 3.8 cm
LA Area 4C View 10.8 cm2 <= 20 cm2
LA Length 4C 4.7 cm
LA Volume 18.4 cm3 18 - 58 / 22 - 52 cm3
LA Volume Index 17.9 cm3/m2 16 - 34 cm3/m2
RV Diastolic Basal Diameter 3.4 cm 2.0 - 2.8 cm
RV Diastolic Mid Diameter 2.2 cm 2.7 - 3.3 cm
Aorta at Sinotubular Diameter 2.2 cm
Ascending Aorta Diameter 3.3 cm
Aorta at Sinuses Diameter 3.0 cm
M-MODE
AV Cusp Separation MM 1.5 cm
TAPSE 2.7 cm
DOPPLER
AV Peak Velocity 153.0 cm/s
AV Peak Gradient 9.4 mmHg
AV Mean Gradient 4.0 mmHg
AV Velocity Time Integral 31.6 cm
AI Peak Velocity 324.0 cm/s
AI Peak Gradient 42.0 mmHg
AI Pressure Half Time 472.0 ms
LVOT Peak Velocity 99.2 cm/s
LVOT Peak Gradient 3.9 mmHg
LVOT Velocity Time Integral 21.6 cm
LVOT Stroke Volume 55.0 cm3
LVOT Stroke Volume Index 38.7 ml/m2 empty
LVOT Cardiac Index 3173.4 cm3/min
AV Area Cont Eq vti 1.7 cm2
AV Area Cont Eq pk 1.6 cm2
MV Area PHT 4.8 cm2
Mitral E Point Velocity 70.7 cm/s
Mitral A Point Velocity 76.3 cm/s
Mitral E to A Ratio 0.9
LV E' Lateral Velocity 8.4 cm/s
Mitral E to LV E' Lateral Ratio 8.4
LV E' Septal Velocity 7.9 cm/s
Mitral E to LV E' Septal Ratio 8.9
TR Peak Velocity 234.0 cm/s
TR Peak Gradient 21.9 mmHg
3D ECHO
LV Ejection Fraction 3D 69.0 %
Discharge Plan
-
Patient Disposition: Home (Routine Discharge)
Discharge Diagnosis/Procedures: Change in mental status
Condition: Good
Diet: No restrictions
Activity: No restrictions
Driving Restrictions: As prior to admission
Bathing Restrictions: None
Blood Work: B 12 level one month
Referrals:
Chayo Centeno MD, Resident [Family Practice Resident Year2] - in less than 1 week
UNKNOWN,NO INTERVIEW [Family Provider] -
Prescriptions:
New
thiamine HCl (vitamin B1) 100 mg tablet
100 mg PO DAILY Qty: 20 0RF
cefuroxime axetil 500 mg tablet
500 mg PO BID Qty: 4 0RF
cyanocobalamin (vitamin B-12) 1,000 mcg capsule
1,000 mcg PO DAILY Qty: 30 0RF
Continued
hydrochlorothiazide 25 mg Tablet
25 mg PO DAILY
metoprolol succinate 25 mg Tablet Extended Release 24 Hr
25 mg PO DAILY
Discharge Orders:
Discharge Patient (As Directed); Ordered 09/28/23
Ordered By: Lakhwinder Jara
Discharge Date and Time
Print Language: CROATIAN
--- NOTE | 2023-09-27 16:05 | PTOTSP ---
WINDOW CASER Note
Per chart review, patient's MRI of Brain was negative for a stroke and speech/cognitive symptoms felt to be due to UTI. Speech now intact per neurology. Outpatient neurology consult recommended per chart review. Patient with risk factors for
cognitive dysfunction (i.e., chronic alcohol use disorder). Consider outpatient WINDOW CASER cognitive evaluation after UTI resolved.
Spoke with nursing who reported patient has been tolerating a regular, thin liquid diet without difficulty. Patient afebrile, WBC WNL (6.5). Will sign off from dysphagia tx at this time. Please reconsult as appropriate.
[2023-09-27] MEDS: TOPROL XL 25 MG PO (16:40)
[2023-09-27] MEDS: LOVENOX 40 MG SC (17:47)
[2023-09-27] MEDS: ROCEPHIN 1000 MG IV (17:47)
[2023-09-27] MEDS: STERILE WATER FOR INJECTION 10 ML IV (17:47)
[2023-09-28 03:25] VITALS: BP 119/64
--- NOTE | 2023-09-28 04:11 | DOWNTIME ---
There was a [employer] Client Ad[employer] Services Manager Downtime on 09/28/2023 from 0100 to 09/28/2023 at 0255. Downtime documentation of patient's care, including medication administrations, has been reconciled in the electronic record per guidelines. Refer to the
patient's paper chart under the miscellaneous tab to see printed paper medication records and downtime forms.
[2023-09-28 07:00] VITALS: BP 146/81
[2023-09-28 08:20] LABS: % Basophils 0.8 % (0-2); % Eosinophils 3.3 % (0-6); % Immature Granulocytes 0.3 % (0-0.5); % Lymphocytes 26.6 % (20.5-51.1); % Monocytes 8.4 % (1.7-9.3); % Neutrophils 60.6 % (42.2-75.2); Absolute Basophils 0.1 10^3/uL (0-0.2); Absolute Eosinophils 0.2 10^3/uL (0-0.7); Absolute Lymphocytes 1.7 10^3/uL (1.2-3.4); Absolute Monocytes 0.5 10^3/uL (0.1-0.6); Absolute Neutrophils 3.9 10^3/uL (1.4-6.5); Hematocrit 36.6 % (37.0-47.0); Hemoglobin 12.6 g/dL (12.0-16.0); Mean Corp Hgb Conc. 34.4 g/dL (33.0-37.0); Mean Corpuscular Volume 92.9 fL (81.0-99.0); Mean Platelet Volume 9.7 fL (7.4-10.4); Nucleated Red Blood Cells % 0 %; Platelet Count 270 10^3/uL (130-400); Red Blood Cell Count 3.94 10^6/uL (4.20-5.40); Red Cell Dist. Width 14.6 % (11.5-14.5); White Blood Cell Count 6.5 10^3/uL (4.8-10.8)
[2023-09-28 08:38] LABS: Blood Urea Nitrogen 20 mg/dl (7-17); Calcium 9.4 mg/dl (8.4-10.2); Carbon Dioxide 25 mmol/L (22-30); Chloride 105 mmol/L (98-107); Estimated Creatinine Clearance 31 ml/min; Glucose 89 mg/dl (70-99); Sodium 136 mmol/L (135-145); eGFR 56.25
[2023-09-28] MEDS: FOLVITE 1 MG PO (09:05)
[2023-09-28] MEDS: VITAMIN B-12 100 MCG PO (09:05)
[2023-09-28] MEDS: THIAMINE INJECTION 255 MG IV (09:05)
[2023-09-28] MEDS: TOPROL XL 25 MG PO (09:05)
--- NOTE | 2023-09-28 09:10 | W.PN.HOSP.TC ---
Addendum entered and electronically signed by Matilde Ortega MD 09/28/23 14:05:
I personally performed a history and physical exam of the patient and discussed management with the resident. I reviewed the resident's note and agree with the documented findings and plan of care HPI/CC.
Patient is feeling well.
Vital stable
Exam unremarkable no suprapubic tenderness
Family feels that patient is back to her baseline mentation
Urine culture sent back with E. coli sensitive to cephalosporins
Antibiotics changed
Resume antihypertensives
D/W Son and at bedside
Total discharge coordination time more than 30 minutes
Original Note:
Today's Communication/Plan
-
Discharge home
Assessment / Plan
Assessment / Plan
IMPRESSION: 83-year-old female presents with an acute onset of change in mental status
PLAN:
#Change in mental status
-Likely TME secondary to a UTI
-Resolved
-Patient completely at normal baseline mentation, no longer forgetful or having word finding difficulties. Patient was AAO x 4, she remembered me from yesterday, she remembers her family, currently not altered.
-Will continue to monitor
-Last known normal was the night of 09/25/2023
-Patient appeared altered from baseline the morning of 09/26/2023, family endorsed this as well. Endorsed issues with word finding, identification and general forgetfulness
-CT scan head in ED did not show any acute intracranial pathology
-MRI brain, head, neck showed no acute stroke or significant vascular stenosis
-Discontinue permissive hypertension
-Echocardiogram resulted, normal heart function
-Patient was loaded with DAPT, aspirin and Plavix
-DAPT discontinued
-IV thiamine 500 every 8
-B12, folate, TSH were within normal limits
-Speech and PT OT have been consulted
-discontinue neurochecks and NIH scale
#UTI
-UA and reflex culture was positive for leukocyte esterase, white blood cells, many bacteria
-Ceftriaxone 1000 IV daily was initiated
-Urine culture and sensitivity currently pending
-Will adjust antibiotics with results, consider transitioning to p.o. Ceftin twice daily 500 for 2 days
#Alcohol abuse
-Patient endorses drinking 8 to 10 ounces of vodka every day
-Patient placed on MSAS protocol
-MSAS score was 1 this morning, tremors only
-No Ativan needed
-Will continue to monitor for signs of alcohol withdrawal
-IV thiamine 500 every 8 hours ordered
-Magnesium repleted yesterday
-B12 came back under 400, 100 mcg p.o. daily was initiated
#Hyponatremia
-Resolved
-Sodium 136 today
-Patient appears euvolemic on exam
-Sodium 133 on admission
-Status post 1 L IV fluids
#Hypokalemia
-Potassium 3.2
-Will replete with 40 mEq p.o. once
-Resolved
Cholesterol-lowering diet
DVT prophylaxis: Lovenox 40 subcu
Full code
Anticipated Discharge: Today
Subjective/Interval History
-
Date of Service: September 28, 2023
No acute events overnight
Patient's mentation status has not changed, greatly improved and currently is at her baseline
Objective Data
-
Labs:
Laboratory Results
09/28/23
07:46
WBC 6.5
Hgb 12.6
Hct 36.6 L
Plt Count 270
Sodium 136
Potassium 4.0
Chloride 105
Carbon Dioxide 25
BUN 20 H
Creatinine 1.0
Glucose 89
Calcium 9.4
Vital Signs:
Vital Signs
Temp Pulse Resp BP Pulse Ox
98.5 F 74 18 146/81 96
09/28/23 07:00 09/28/23 07:00 09/28/23 07:00 09/28/23 07:00 09/28/23 07:00
I&O
09/27/23 09/28/23 09/29/23
06:59 06:59 06:59
Intake Total 720 / 720 1680 / 1680
Balance 720 / 720 1680 / 1680
Review of Systems
-
History Source: Patient
Constitutional: Reports No Symptoms
Respiratory: Reports No Symptoms
Cardiac: Reports No Symptoms
Abdomen/GI: Reports No Symptoms
Physical Exam
-
General: Well Developed, Well Nourished, No Apparent Distress and Comfortable
Respiratory: Clear to Auscultation
Cardiac: Regular Rhythm and S1/S2
GI: Soft, Nontender, Nondistended and Normal Bowel Sounds
Musculoskeletal: No Edema
Skin: Warm and Dry
Neuro: Awake, Alert, Oriented, AO x 3 and Tremors
Psych: Calm and Intact Judgement/Insight
Data Reviewed
-
Labs: Labs Reviewed by me and Discussed with Physician
--- NOTE | 2023-09-28 10:31 | PN.CDI ---
CDI
- -
CDI:
Physician Documentation Request
Admit Date: 09/26/23 15:41
Dear Doctor Estefani,
Patient admitted for change in mental status.
Please review the following and provide your response in the progress notes.
Clinical Indicators:
Height: 5' 4'
Weight:100 lbs
BMI:17.3
If possible, please provide an associated diagnosis related to the abnormal BMI, such as:
Underweight
Cachectic
BMI is not significant
Other
BMI < or = to 19.9
Underweight
Weight Loss
Cachectic
Anorexia
Use of terms such as suspected, likely, concern for, or probable (associated with a specific diagnosis that is being evaluated, monitored, or treated as if it exists) are acceptable and can be coded in the inpatient setting, when documented at the
time of discharge.
Thank you,
Jemima Estrada RN, BSN
CDI Specialist
Available via [place] text
Please use your independent medical judgment in providing your response.
[2023-09-28 11:00] VITALS: BP 134/80
--- NOTE | 2023-09-28 14:47 | CM ---
CM reviewed chart, patient plan home no needs. CM will continue to follow for all discharge planning needs.
Plan; home no needs.
--- NOTE | 2023-09-29 09:58 | PN.CDI ---
Addendum entered and electronically signed by Matilde Ortega MD 09/30/23 15:38:
Documentation is complete at this time.
Original Note:
CDI
- -
CDI:
Physician Documentation Request
Admit Date: 09/26/23 15:41
Dear Doctor Estefani,
Patient admitted with UTI.
H&P: 'he does admit to drinking 8 to 10 ounces of vodka daily for years'
09/27 Hospitalist PN: 'Alcohol abuse -Patient endorses drinking 8 to 10 ounces of vodka every day -Patient placed on MSAS protocol'
If possible, please provide further specificity as outlined below:
Alcohol abuse with dependence
Alcohol abuse
Other
Use of terms such as suspected, likely, concern for, or probable (associated with a specific diagnosis that is being evaluated, monitored, or treated as if it exists) are acceptable and can be coded in the inpatient setting, when documented at the
time of discharge.
Thank you,
Jemima Estrada RN, BSN
CDI Specialist
Available via [place] text
Please use your independent medical judgment in providing your response.
--- NOTE | 2023-09-29 10:07 | W.PN.UPDATE ---
Documented by User: Lakhwinder Jara DO, Resident 09/29/23 10:08
Update Note
Progress Note Update
#Alcohol abuse without dependence
-Patient states to drink 8 to 10 ounces of alcohol per day
-Patient had no withdrawal symptoms, was placed on M SAS criteria
-Never required Ativan as her MSAA score never went above 2

Documented by User: Matilde Ortega MD 09/30/23 15:38
Update Note
Progress Note Update
# Daily Alcohol use without dependence
-Patient states to drink 8 to 10 ounces of alcohol per day
-Patient had no withdrawal symptoms, was placed on M SAS criteria
-Never required Ativan as her MSAS score never went above 2
== END 2023-09-28 14:34 | disposition home or self-care (01) | DRG 92 ==
LOC: 4 WEST ACU 15:41
PROVIDERS: ADMITTING PHYSICIAN Hospitalist; CONSULT PHYSICIAN Student in an Organized Health Care Education/Training Program; EMERGENCY PHYSICIAN Emergency Medicine
DX: G92.8 Other toxic encephalopathy (principal); E87.1 Hypo-osmolality and hyponatremia; N39.0 Urinary tract infection, site not specified; F17.200 Nicotine dependence, unspecified, uncomplicated; I10 Essential (primary) hypertension; F10.10 Alcohol abuse, uncomplicated
CPT/HCPCS: 70450; 70544; 70548; 70551; 80048; 80053; 80061; 80306; 81003; 81015; 82010; 82077; 82607; 82728; 82746; 82962; 82977; 83036; 83735; 84100; 84443; 85025; 85610; 87077; 87086; 87186; 93005; 93306; 97162; 97167; 99285; 99406

== ENCOUNTER → 2023-10-21 12:21 | Outpatient (REF) | payer OTHER, SELFPAY | LOC: HWRAD 12:21 | PROVIDERS: ATTENDING PHYSICIAN Student in an Organized Health Care Education/Training Program | DX: R05.1 Acute cough (principal) | CPT/HCPCS: 71046 ==

== ENCOUNTER → 2023-10-24 10:49 | Outpatient (REF) | payer OTHER, SELFPAY ==
[2023-10-24 15:31] LABS: % Basophils 0.5 % (0-2); % Eosinophils 0.9 % (0-6); % Immature Granulocytes 0.3 % (0-0.5); % Monocytes 7.1 % (1.7-9.3); % Neutrophils 69.2 % (42.2-75.2); Absolute Basophils 0.1 10^3/uL (0-0.2); Absolute Eosinophils 0.1 10^3/uL (0-0.7); Absolute Lymphocytes 2.3 10^3/uL (1.2-3.4); Absolute Monocytes 0.8 10^3/uL (0.1-0.6); Absolute Neutrophils 7.4 10^3/uL (1.4-6.5); Hematocrit 40.3 % (37.0-47.0); Hemoglobin 13.9 g/dL (12.0-16.0); Mean Corp Hgb Conc. 34.5 g/dL (33.0-37.0); Mean Platelet Volume 10.8 fL (7.4-10.4); Nucleated Red Blood Cells % 0 %; Platelet Count 326 10^3/uL (130-400); Red Blood Cell Count 4.48 10^6/uL (4.20-5.40); Red Cell Dist. Width 13.4 % (11.5-14.5); White Blood Cell Count 10.6 10^3/uL (4.8-10.8)
[2023-10-24 15:32] LABS: Blood Urea Nitrogen 35 mg/dl (7-17); Carbon Dioxide 28 mmol/L (22-30); Chloride 97 mmol/L (98-107); Glucose 100 mg/dl (70-99); Potassium 3.2 mmol/L (3.5-5.1); Sodium 135 mmol/L (135-145); eGFR 56.25
[2023-10-24 16:21] LABS: Vitamin B12 > 1000 pg/ml (239-931)
== END ==
LOC: HWLAB 10:49
PROVIDERS: ATTENDING PHYSICIAN Student in an Organized Health Care Education/Training Program
DX: Z09 Encounter for follow-up examination after completed treatment for conditions other than malignant neoplasm (principal); R79.89 Other specified abnormal findings of blood chemistry; F17.200 Nicotine dependence, unspecified, uncomplicated; E87.8 Other disorders of electrolyte and fluid balance, not elsewhere classified
CPT/HCPCS: 36415; 80048; 82607; 85025

== ENCOUNTER → 2023-11-21 14:35 | Outpatient (REF) | payer OTHER, SELFPAY | LOC: HWRAD 14:35 | PROVIDERS: ATTENDING PHYSICIAN Student in an Organized Health Care Education/Training Program | DX: R05.1 Acute cough (principal); R63.4 Abnormal weight loss; Z68.1 Body mass index [BMI] 19.9 or less, adult | CPT/HCPCS: 71260; 74177; Q9967 ==

== ENCOUNTER → 2024-04-17 07:25 | Outpatient (REF) | payer OTHER, SELFPAY | LOC: RAD 07:25 | PROVIDERS: ATTENDING PHYSICIAN Student in an Organized Health Care Education/Training Program; FAMILY PHYSICIAN Family Medicine | DX: J18.0 Bronchopneumonia, unspecified organism (principal) | CPT/HCPCS: 71260; Q9967 ==

== ENCOUNTER → 2024-05-11 09:02 | Outpatient (REF) | payer OTHER, SELFPAY | LOC: PAVMRI 09:02 | PROVIDERS: ATTENDING PHYSICIAN Student in an Organized Health Care Education/Training Program | DX: R27.0 Ataxia, unspecified (principal) | CPT/HCPCS: 70553; A9575 ==

== ENCOUNTER → 2024-06-13 15:33 | Outpatient (REF) | payer OTHER, SELFPAY ==
[2024-06-13 16:54] LABS: Urine Albumin 2+ (Neg - Trace); Urine Bilirubin Negative (Negative); Urine Character Slightly Cloudy (Clear); Urine Color Yellow; Urine Glucose Negative (Negative); Urine Ketone Negative (Negative); Urine Leukocyte 1+ (Negative); Urine Nitrite Positive (Negative); Urine Occult Blood 1+ (Negative); Urine Specific Gravity 1.015 (<1.030); Urine Urobilinogen Negative (Neg - 1+)
[2024-06-13 17:28] LABS: Urine Squamous Cell 0-2 /LPF (Few)
[2024-06-13 17:29] LABS: Urine Bacteria Many (Negative); Urine Red Blood Cell 0-2 /HPF (0-2); Urine White Cell 16-20 /HPF (0-5)
== END ==
LOC: CLAB 15:33
PROVIDERS: ATTENDING PHYSICIAN Student in an Organized Health Care Education/Training Program
DX: R30.0 Dysuria (principal)
CPT/HCPCS: 81003; 81015; 87077; 87086; 87186

== ENCOUNTER → 2024-07-19 12:00 | Outpatient (REF) | payer OTHER, SELFPAY | LOC: CLAB 12:00 | PROVIDERS: ATTENDING PHYSICIAN Student in an Organized Health Care Education/Training Program | DX: R30.0 Dysuria (principal) | CPT/HCPCS: 87086 ==

== ENCOUNTER → 2024-08-22 12:09 | Outpatient (REF) | payer OTHER, SELFPAY ==
[2024-08-22 13:36] LABS: ALT (SGPT) 22 U/L (0-35); AST (SGOT) 26 U/L (14-36); Albumin 4.8 g/dl (3.5-5.0); Alkaline Phosphatase 42 U/L (38-126); Blood Urea Nitrogen 35 mg/dl (7-17); Calcium 10.5 mg/dl (8.4-10.2); Carbon Dioxide 23 mmol/L (22-30); Chloride 106 mmol/L (98-107); Glucose 85 mg/dl (70-99); Potassium 4.8 mmol/L (3.5-5.1); Sodium 140 mmol/L (135-145); Total Bilirubin 0.7 mg/dl (0.2-1.3)
[2024-08-22 13:50] LABS: Vitamin D, 25-OH*** 27.8 ng/mL (30-80)
== END ==
LOC: REG 12:09
PROVIDERS: ATTENDING PHYSICIAN Internal Medicine; FAMILY PHYSICIAN Student in an Organized Health Care Education/Training Program
DX: M81.0 Age-related osteoporosis without current pathological fracture (principal)
CPT/HCPCS: 36415; 80053; 82306

== ENCOUNTER → 2024-12-04 14:27 | Outpatient (REF) | payer OTHER, SELFPAY | LOC: HWRAD 14:27 | PROVIDERS: ATTENDING PHYSICIAN Student in an Organized Health Care Education/Training Program | DX: N18.32 Chronic kidney disease, stage 3b (principal) | CPT/HCPCS: 76770 ==